=== PATIENT | male | born 1990 | race Hispanic/Latino ===

== ENCOUNTER 2018-04-01 15:13 | Emergency (ER) | payer SELFPAY | END 2018-04-01 15:29 | disposition home or self-care (01) | LOC: EDH 15:13 | DX: R68.84 Jaw pain (principal); F41.9 Anxiety disorder, unspecified; Z72.0 Tobacco use | CPT/HCPCS: 99281 ==

== ENCOUNTER 2022-10-10 15:06 | Emergency (ER) | payer OTHER ==
[~2022-10-10] VITALS: Ht 170.2 cm; Wt 74.8 kg
[2022-10-10] MEDS ORDERED: TETANUS/DIPHTHERIA TOXOID [ADULT] 0.5 ML VIAL IM ONE (15:30)
[2022-10-10] MEDS ORDERED: HYDROCODONE/ACETAMINOPHEN 5/325 MG TAB PO ONE (17:00)
[2022-10-10] MEDS ORDERED: CEPHALEXIN 500 MG CAPSULE PO ONE (17:00)
[2022-10-10 18:00] VITALS: BP 122/77; PULSE 67; RESP 18; O2SAT 98
[2022-10-10] MEDS ORDERED: CEPH500B PO (18:58)
[2022-10-10] MEDS ORDERED: KETO10 PO (18:58)
== END 2022-10-10 20:14 | disposition home or self-care (01) ==
LOC: EDH 15:06
DX: S61.211A Laceration without foreign body of left index finger without damage to nail, initial encounter (principal); W26.9XXA Contact with unspecified sharp object(s), initial encounter; Y93.89 Activity, other specified; Y92.89 Other specified places as the place of occurrence of the external cause; Y99.8 Other external cause status
CPT/HCPCS: 12001; 73130; 90471; 90714